=== PATIENT | male | born 1970 | race Native Hawaiian/Other Pacific Islander ===

== ENCOUNTER 2022-09-09 14:11 | Emergency (ER) | payer OTHER ==
[~2022-09-09] VITALS: Ht 188 cm; Wt 95.3 kg
[2022-09-09 15:11] LABS: PLATELET COUNT 194 K/uL (142-355)
[2022-09-09 16:35] VITALS: BP 118/69; TEMP 98.2
== END 2022-09-09 16:35 | disposition home or self-care (01) ==
LOC: ED 14:11
PROVIDERS: Emergency Medicine
DX: S70.01XA Contusion of right hip, initial encounter (principal); W11.XXXA Fall on and from ladder, initial encounter; Y92.89 Other specified places as the place of occurrence of the external cause
CPT/HCPCS: 80048; 83880; 85027; 96372; 99283; J1170; J1940; J2405